=== PATIENT | male | born 1985 ===

== ENCOUNTER 2018-08-11 22:57 | Emergency (ER) | payer SELFPAY ==
[2018-08-11 23:30] VITALS: BP 143/90; PULSE 93; RESP 20; TEMP 99.7; O2SAT 97
--- NOTE | 2018-08-12 00:41 | C.PDOC ---
History Of Present Illness 32 year old male who was seen by dentist yesterday for pain and started on clindamycin and ibuprofen; he took the clinda yesterday and today but is complaining of more pain and tenderness. Patient states the medications are not helping and is requesting something else for the pain. Time Seen by Provider: 08/12/18 00:39 Chief Complaint (Nursing): Dental Pain History Per: Patient History/Exam Limitations: no limitations Onset/Duration Of Symptoms: Days Current Symptoms Are (Timing): Still Present Recent travel outside of the [place]: No Past Medical History Reviewed: Historical Data, Nursing Documentation, Vital Signs Vital Signs: Last Vital Signs Temp 99.7 F H 08/11/18 23:26 Pulse 93 H 08/11/18 23:26 Resp 20 08/11/18 23:26 BP 143/90 08/11/18 23:26 Pulse Ox 97 08/11/18 23:26 Family History: States: Unknown Family Hx - Social History Hx Alcohol Use: No Hx Substance Use: No Review Of Systems Constitutional: Negative for: Fever, Chills Eyes: Negative for: Redness, Other (Scleral icterus) ENT: Positive for: Mouth Pain, Mouth Swelling Cardiovascular: Negative for: Chest Pain Respiratory: Negative for: Cough, Shortness of Breath Gastrointestinal: Negative for: Nausea, Vomiting, Diarrhea Genitourinary: Negative for: Dysuria, Hematuria Musculoskeletal: Negative for: Back Pain Skin: Negative for: Rash Neurological: Negative for: Weakness, Numbness, Dizziness Physical Exam - Physical Exam Appears: Well, Non-toxic, No Acute Distress Skin: Normal Color, Warm, No Rash, No Other (Facial erythema) Head: Atraumatic, Normacephalic Eye(s): bilateral: Normal Inspection (No scleral icterus), PERRL, EOMI Ear(s): Bilateral: Normal (No drainage) Nose: Normal Oral Mucosa: Moist Lips: Other (Induration, swelling, and tenderness to inner upper right lip) Teeth: No Caries (Obvious) Gingiva: No Swelling Throat: Normal (No swelling or injection), No Exudate, Other (Airway patent) Neck: Normal ROM, Supple Chest: Symmetrical Cardiovascular: Rhythm Regular Respiratory: No Accessory Muscle Use, Other (Normal inspiratory effort) Gastrointestinal/Abdominal: Soft, No Distention Back: Other (Ambulating with steady upright gait) Extremity: Bilateral: Atraumatic, Normal ROM Pulses: Left Radial: Normal (2+), Right Radial: Normal (2*) Neurological/Psych: Oriented x3, Normal Cranial Nerves (Grossly intact) ED Course And Treatment O2 Sat by Pulse Oximetry: 97 Medical Decision Making Medical Decision Making: Tramadol administered. Patient instructed to continue clindamycin and ibuprofen and follow up with dentist if medication does not work. Disposition Counseled Patient/Family Regarding: Diagnosis, Need For Followup, Rx Given - Disposition Disposition: HOME/ ROUTINE Disposition Time: 00:40 Condition: IMPROVED Additional Instructions: JET GRAY, thank you for letting us take care of you today. Your provider was Jose Vincent MD and you were treated for DENTAL PAIN. The emergency medical care you received today was directed at your acute symptoms. If you were prescribed any medication, please fill it and take as directed. It may take several days for your symptoms to resolve. Return to the Emergency Department if your symptoms worsen, do not improve, or if you have any other problems. Please contact your doctor or call one of the physicians/clinics you have been referred to that are listed on the Patient Visit Information form that is included in your discharge packet. Bring any paperwork you were given at discharge with you along with any medications you are taking to your follow up visit. Our treatment cannot replace ongoing medical care by a primary care provider outside of the emergency department. Thank you for allowing the [facility] to be part of your care today. Instructions: Tooth Abscess (DC), Dental Pain (DC) Forms: [employer] (Telugu), General Discharge Instructions Print Language: CROATIAN - Clinical Impression Clinical Impression: Pain, dental, Dental infection - PA / SALESPERSON RECREATIONAL VEHICLES / Resident Statement MD/DO has reviewed & agrees with the documentation as recorded. - Scribe Statement The provider has reviewed the documentation as recorded by the Scribmaricruz Rodríguez All medical record entries made by the Trent were at my direction and personally dictated by me. I have reviewed the chart and agree that the record accurately reflects my personal performance of the history, physical exam, medical decision making, and the department course for this patient. I have also personally directed, reviewed, and agree with the discharge instructions and disposition.
== END 2018-08-12 00:46 | disposition home or self-care (01) ==
LOC: C.ER 22:57
DX: K04.7 Periapical abscess without sinus (principal); K08.89 Other specified disorders of teeth and supporting structures